=== PATIENT | female | born 1990 | race Hispanic/Latino ===

== ENCOUNTER 2019-07-06 08:34 | Outpatient (CLI) | payer OTHER ==
--- NOTE | 2019-07-06 09:13 | ULT ---
OBSTETRICAL ULTRASOUND: DATE: 07/06/2019. COMPARISON: None. HISTORY: Evaluate anatomy. TECHNIQUE: Multiplanar grayscale sonographic imaging of the gravid uterus obtained. FINDINGS: The umbilical cord insertion site, kidneys, stomach, and urinary bladder appear grossly u nremarkable. Cervical length is 4.2 cm. A 3-vessel cord is noted. presentation is breech. The placenta is located posteriorly, demonstrating no evidence for previa or abruption. intracrania l contents and 4-chamber heart view appear unremarkable. heart rate is approximately 147 bpm. Amniotic fluid index is 13.2 cm. spine appears grossly unremarkable. nose and lips appear grossly unremarkable as well. biometry: BPD 4.5 cm 19 weeks 5 days. HC 17.8 cm 20 weeks 3 days. AC 15.1 cm 20 weeks 3 days. FL 3.2 cm 20 weeks 1 days. Average age based on ultrasound is 20 weeks 2 days with estimated date of delivery on 11/21/2019. weight 338 g +/- 49 g. IMPRESSION: Single intrauterine gestation as detailed above. Transcribed Date/Time: 07/06/2019 9:18 AM
== END 2019-07-06 08:35 | disposition home or self-care (01) ==
LOC: BICULT 08:34
PROVIDERS: ATTEND Family Medicine
DX: O09.92 Supervision of high risk pregnancy, unspecified, second trimester (principal); Z3A.20 20 weeks gestation of pregnancy
CPT/HCPCS: 76805

== ENCOUNTER 2019-11-13 09:42 | Inpatient (IN) | payer MEDICAID, OTHER, SELFPAY ==
[2019-11-13] MEDS ORDERED: Ondansetron PF 4 MG/2 ML Vial IVP PRN (10:08)
[2019-11-13] MEDS ORDERED: CEFAZOLIN 2 GM in Premix Bag 1 BAG IVPB SCH (10:08)
[2019-11-13] MEDS ORDERED: hydrALAZINE 20 MG/ML VIAL SLOW IVP PRN (10:08)
[2019-11-13] MEDS ORDERED: Promethazine HCl 25 MG/ML VIAL IM PRN ×2 (10:08→12:32)
[2019-11-13] MEDS: Lactated Ringer's 1,000 ML IV SCH ×2 (10:46→11:31)
[2019-11-13 11:04] LABS: Hemoglobin 9.8 g/dL (12.0-16.0); Mean Corpuscular HGB CONC 34.4 g/dL (32.0-36.0); Mean Corpuscular Hemoglobin 27.3 pg (27.0-31.0); Mean Corpuscular Volume 79.4 fL (78.0-98.0); Mean Platelet Volume 9.2 fL (7.4-10.4); Platelet Count 203 thou/uL (130-400); RBC Distribution Width 13.2 % (11.5-14.5); Red Blood Cell (RBC) Count 3.57 mill/uL (4.20-5.40)
[2019-11-13] MEDS ORDERED: Famotidine/PF 20 mg/2ml Vial ONE (11:23)
[2019-11-13 11:40] LABS: Syphilis Antibody Nonreactive (Nonreactive); Syphilis Antibody Index 0.02 S/CO (<1.00 Non-Reactive)
[2019-11-13 11:41] LABS: HBSAg Index 0.15 S/CO (0-0.99); Hep B Surf Ag Non-Reactive S/CO (NonReactive)
[2019-11-13] MEDS ORDERED: Midazolam HCl 2 mg/2 ml Vial ONE (11:49)
[2019-11-13] MEDS ORDERED: Oxytocin 10 UNITS/ML VIAL ONE ×2 (11:50→11:52)
[2019-11-13] MEDS ORDERED: PHENYLEPHRINE-NS 100 MCG/ML 10 ML SYRINGE ONE (11:50)
[2019-11-13] MEDS ORDERED: Ondansetron PF 4 MG/2 ML Vial ONE ×2 (11:50→11:53)
[2019-11-13] MEDS ORDERED: Dexamethasone 4 mg/ml Vial ONE (11:50)
[2019-11-13] MEDS ORDERED: EPHEDRINE 25 MG/5 ML SYRINGE ONE (11:50)
[2019-11-13] MEDS ORDERED: MORPHINE 5 MG/10 ML PF VIAL ONE (11:51)
[2019-11-13] MEDS ORDERED: Ondansetron HCl/PF 4 MG/2 ML Vial IVP PRN ×2 (12:32→17:40)
[2019-11-13] MEDS ORDERED: L&D-Morphine 4 MG/ML VIAL SLOW IVP PRN ×2 (12:32→17:40)
[2019-11-13] MEDS ORDERED: Naloxone HCl 0.4 mg/ml Vial IV PRN (12:32)
[2019-11-13] MEDS ORDERED: Promethazine HCl 25 MG SUPP PR PRN (12:32)
[2019-11-13] MEDS ORDERED: Ketorolac Tromethamine 30 MG/ML VIAL IVP PRN (12:32)
[2019-11-13] MEDS ORDERED: HYDROmorphone 2 MG/ML VIAL SLOW IVP PRN ×2 (12:32→17:40)
[2019-11-13] MEDS ORDERED: Meperidine HCl/PF 25 MG/ML VIAL SLOW IVP PRN ×2 (12:32→17:40)
[2019-11-13] MEDS ORDERED: diphenhydrAMINE 50 MG/ML VIAL IVP PRN (12:32)
[2019-11-13] MEDS ORDERED: Naloxone HCl 0.4 mg/ml Vial IVP PRN ×2 (12:32)
[2019-11-13] MEDS ORDERED: Ketorolac Tromethamine 30 MG/ML VIAL ONE (12:40)
[2019-11-13] MEDS ORDERED: Ketorolac Tromethamine 30 MG/ML VIAL IVP SCH (12:45)
[2019-11-13] MEDS ORDERED: Communication Order-Pharmacy FS SCH (12:45)
[2019-11-13] MEDS ORDERED: Tranexamic Acid 1,000 MG/10 ML VIAL ONE ×2 (14:05→16:18)
[2019-11-13] MEDS ORDERED: Sodium Chloride 0.9% 250 ML 0 ML ONE (14:06)
[2019-11-13] MEDS ORDERED: Sodium Chloride 0.9% 250 ML 250 ML ONE (14:07)
[2019-11-13] MEDS: Tranexamic Acid 1,000 MG in Sodium Chloride 0.9% 100 ML IVPB SCH ×2 (15:56→16:27)
[2019-11-13] MEDS ORDERED: Promethazine HCl 25 MG/ML VIAL ONE (16:32)
[2019-11-13] MEDS ORDERED: Meperidine HCl/PF 25 MG/ML VIAL ONE (17:56)
[2019-11-13 19:32] LABS: Hemoglobin 10.1 g/dL (12.0-16.0); Mean Corpuscular HGB CONC 34.4 g/dL (32.0-36.0); Mean Corpuscular Hemoglobin 28.6 pg (27.0-31.0); Mean Corpuscular Volume 83.1 fL (78.0-98.0); Mean Platelet Volume 9.4 fL (7.4-10.4); Platelet Count 171 thou/uL (130-400); RBC Distribution Width 13.5 % (11.5-14.5); Red Blood Cell (RBC) Count 3.51 mill/uL (4.20-5.40); White Blood Cell (WBC) Count 11.7 thou/uL (4.8-10.8)
[2019-11-14] MEDS ORDERED: Sodium Chloride 0.9% 10 ML ONE ×3 (00:21→04:48)
--- NOTE | 2019-11-14 00:45 | OP ---
DATE OF PROCEDURE: 11/13/2019 PREOPERATIVE DIAGNOSES: 1. 39-week . 2. Previous x2. 3. Chronic iron deficiency anemia POSTOPERATIVE DIAGNOSES: 1. 39-week . 2. Previous x2. 3. Chronic iron deficiency anemia 4. Pelvic adhesive disease 5. Intrapartum hemorrhage secondary to #4 PROCEDURE PERFORMED: Repeat low cervical transverse . FITTER TACKER: Dr. Lackey. DESCRIPTION OF PROCEDURE: After informed consent was obtained from the patient , she was taken to the operating room where spinal anesthesia was administered. She was prepped and draped in the usual sterile fashion. A Pfannenstiel incision was created with a #10 scalpel blade and carried down to the fascia. Skin bleeders were cauterized with the Bovie. The fascia was nicked in the midline. The fascial incision was extended transversely with Guajardo scissors. The superior fascial segment was freed from the underlying rectus muscles with blunt dissection followed by sharp dissection with the Guajardo scissors. This was repeated with the inferior fascial segment. The rectus muscles were divided in the midline sharply with Guajardo scissors. Peritoneum was entered simultaneously. There were extensive adhesions between the omentum and the lower uterine segment and the anterior uterine fundus in several locations. There were also adhesions between the lower uterine segment and the anterior abdominal wall. These adhesions were first taken down carefully with the Bovie and Metzenbaum scissors. The omental adhesions were also taken down at their insertion on the uterus to visualize the lowereuterine segment and enable delivery. More adhesions in the lower segment were then also taken down with Metzenbaum scissors and blunt dissection. The bladder blade was inserted. The rectus muscles were incised transversely bilaterally with the Bovie to create more space for delivery due to the adhesions in the lower uterine segment. The uterus was entered in a low-transverse fashion with a clean #10 scalpel blade. Clear amniotic fluid was encountered. The hysterotomy was extended superior laterally with blunt dissection. The vertex was delivered onto the operative field with the aid of a vacuum,accomplished in one pull with no pop-offs. Max pressure 45 mmHg. There was nuchal cord x1. The remainder of the infant delivered uneventfully and atraumatically. The was stimulated, delayed cord clamping for 30 seconds was performed. The cord was then clamped x2 and cut and a vigorous female infant handed to the staff in attendance. Cord blood was obtained. The placenta was manually extracted. Some brisk bleeders on the hysterotomy were clamped with ring forceps while more adhesions were taken down to allow exteriorization of the uterus. The uterus was then exteriorized and more omental adhesions taken down further to visualize the hysterotomy more clearly. This was then repaired with a running suture of 1 Monocryl in a running locking fashion in a single full-thickness layer. Several interrupted sutures of 0 chromic in a [id number] fashion were used for additional hemostasis along the incision line and ultimately a second imbricating layer of 0 Vicryl was placed. Small serosal bleeders from adhesive disease were made hemostatic with Yanci along the uterine fundus and the posterior wall of the uterus. The repaired hysterotomy had persistant light oozing which was controlled with FloSeal. The omentum was then meticulously inspected and a few areas made hemostatic with the Bovie. The abdomen was copiously irrigated with saline. The uterus was returned to the abdomen. The rectus muscles were repaired with 0-Vicryl, first the right and then the left. The gutters were subsequently inspected and a collection of blood in the right gutter was evacuated. Further inspection revealed bleeding from the posterior rectus muscle repair, and so another layer of 0-Vicryl in a a running locking fashion was placed on the posterior rectus sheath, which was successful in achieving hemostasis. The gutters were again inspected and found to be free of blood. The hysterotomy was inspected once again and was found to be hemostatic as well. Attention was turned to the fascia. Inspection of the anterior rectus muscles revealed a few point bleeders which were coagulated with the Bovie. The corner of the left rectus muscle where it met the fascia was suture ligated as well and hemostasis was observed. The fascia was then repaired with a running locking suture of 0 PDS. Three interrupted sutures of 3-0 Vicryl were placed in the subdermal layer to reapproximate the skin which was cleaned and closed with skin deepti. Sponge and instrument counts were correct x3. The was taken to the Nursery in stable condition, the patient to the recovery room in stable condition. Due to her anemia upon presentation and blood loss associated with multiple adhesions and the rectus muscles, she was given 2 units of PRBCs and TXA in the recovery room. Job ID: [id number] [facility]
[2019-11-14] MEDS ORDERED: hydrALAZINE 20 MG/ML VIAL SLOW IVP PRN (02:23)
[2019-11-14] MEDS ORDERED: diphenhydrAMINE 25 MG CAP PO PRN (02:23)
[2019-11-14] MEDS ORDERED: NS / Oxytocin 40 units/1000ml 1,000 ML IV SCH (02:23)
[2019-11-14] MEDS ORDERED: Simethicone Chewable 80 MG TAB PO PRN (02:23)
[2019-11-14] MEDS ORDERED: Promethazine HCl 25 MG/ML VIAL IM PRN (02:23)
[2019-11-14] MEDS ORDERED: Adacel (T-DAP) 0.5 ML SYRINGE IM ONE (02:23)
[2019-11-14] MEDS ORDERED: Lanolin Ointment 7 GM TUBE TOP PRN (02:23)
[2019-11-14] MEDS ORDERED: Meperidine HCl/PF 25 MG/ML VIAL IM PRN (02:23)
[2019-11-14] MEDS ORDERED: Ondansetron PF 4 MG/2 ML Vial IVP PRN (02:23)
[2019-11-14] MEDS ORDERED: Bisacodyl 10 MG SUPP PR PRN (02:23)
[2019-11-14] MEDS ORDERED: Ferrous Sulfate 325 MG TAB PO SCH ×2 (03:00→08:00)
[2019-11-14] MEDS: Docusate Calcium (SURFAK) 240 MG CAP PO SCH ×3 (04:44→22:41)
[2019-11-14] MEDS: Ketorolac Tromethamine 30 MG/ML VIAL IVP SCH ×3 (04:45→17:51)
[2019-11-14 06:45] LABS: Hemoglobin 8.8 g/dL (12.0-16.0); Mean Corpuscular HGB CONC 33.9 g/dL (32.0-36.0); Mean Corpuscular Hemoglobin 28.1 pg (27.0-31.0); Mean Corpuscular Volume 82.8 fL (78.0-98.0); Mean Platelet Volume 9.1 fL (7.4-10.4); Platelet Count 151 thou/uL (130-400); RBC Distribution Width 13.4 % (11.5-14.5); Red Blood Cell (RBC) Count 3.14 mill/uL (4.20-5.40); White Blood Cell (WBC) Count 7.6 thou/uL (4.8-10.8)
[2019-11-14] MEDS: Prenatal Vitamin 1 TAB PO SCH (08:33)
[2019-11-14] MEDS: HYDROcodone/Acetaminophen 5/325 mg Tablet PO PRN ×4 (08:34→22:56)
[2019-11-14] MEDS ORDERED: Famotidine/PF 20 mg/2ml Vial SLOW IVP SCH (12:00)
[2019-11-14] MEDS: Simethicone Chewable 80 MG TAB PO SCH ×2 (14:33→22:41)
[2019-11-14] MEDS: Ibuprofen 800 MG TAB PO SCH ×2 (14:33→22:41)
[2019-11-14] MEDS: Lactated Ringer's 1,000 ML IV SCH (19:19)
[2019-11-14] MEDS: Ferrous Sulfate 325 MG TAB PO SCH (22:41)
[2019-11-15] MEDS: Ibuprofen 800 MG TAB PO SCH ×3 (05:47→21:03)
[2019-11-15] MEDS: Simethicone Chewable 80 MG TAB PO SCH ×4 (05:47→21:01)
[2019-11-15] MEDS: Docusate Calcium (SURFAK) 240 MG CAP PO SCH ×2 (08:47→21:01)
[2019-11-15] MEDS: Ferrous Sulfate 325 MG TAB PO SCH ×2 (08:47→16:46)
[2019-11-15] MEDS: Prenatal Vitamin 1 TAB PO SCH (08:47)
[2019-11-15] MEDS: HYDROcodone/Acetaminophen 5/325 mg Tablet PO PRN ×3 (08:48→21:01)
[2019-11-15] MEDS ORDERED: Sodium Chloride 0.9% 10 ML ONE (09:38)
[2019-11-15] MEDS: Ondansetron PF 4 MG/2 ML Vial IVP PRN (09:42)
[2019-11-16] MEDS: Simethicone Chewable 80 MG TAB PO SCH (04:33)
[2019-11-16] MEDS: HYDROcodone/Acetaminophen 5/325 mg Tablet PO PRN ×2 (06:02→10:35)
[2019-11-16] MEDS: Ibuprofen 800 MG TAB PO SCH (06:02)
[2019-11-16 08:15] VITALS: BP 114/77; TEMP 98.1
[2019-11-16] MEDS: Prenatal Vitamin 1 TAB PO SCH (08:37)
[2019-11-16] MEDS: Ferrous Sulfate 325 MG TAB PO SCH (08:37)
[2019-11-16] MEDS: Docusate Calcium (SURFAK) 240 MG CAP PO SCH (08:38)
[2019-11-16] MEDS ORDERED: Sodium Chloride 0.9% 10 ML ONE (10:20)
[2019-11-16] MEDS: Ondansetron PF 4 MG/2 ML Vial IVP PRN (10:36)
== END 2019-11-16 11:45 | disposition home or self-care (01) | DRG 788 ==
LOC: L&D 09:42 → 3SW 21:32
PROVIDERS: ADMIT Family Medicine; ATTEND Family Medicine
PROC: 10D00Z1 Extraction of Products of Conception, Low, Open Approach (ICD-10-PCS; principal; 2019-11-13)
PROC: 30233N1 Transfusion of Nonautologous Red Blood Cells into Peripheral Vein, Percutaneous Approach (ICD-10-PCS; 2019-11-13)
DX: O34.211 Maternal care for low transverse scar from previous cesarean delivery (principal); Z3A.39 39 weeks gestation of pregnancy; Z37.0 Single live birth; O99.02 Anemia complicating childbirth; D50.0 Iron deficiency anemia secondary to blood loss (chronic); O34.83 Maternal care for other abnormalities of pelvic organs, third trimester; Z3A.38 38 weeks gestation of pregnancy; O67.8 Other intrapartum hemorrhage
CPT/HCPCS: 36415; 36430; 51702; 85027; 86780; 86850; 86900; 86901; 87340; 99285; J0690; J1100; J1885; J2175; J2250; J2274; J2405; J2550; J2590; J3490; J7050; P9016; S0028